=== PATIENT | male | born 1960 | race Caucasian/White ===

== ENCOUNTER 2017-12-25 21:48 | Emergency (ER) | payer BC ==
[~2017-12-25] VITALS: Ht 182.9 cm; Wt 88.5 kg
[2017-12-25] MEDS ORDERED: FOLIC ACID1 MG PO (22:07)
[2017-12-25] MEDS ORDERED: HYDROCHLOROTH12.5 M1 PO (22:07)
[2017-12-25] MEDS ORDERED: ASPIRIN81 MG PO (22:07)
[2017-12-25] MEDS ORDERED: ATORVASTATIN CA20 MG PO (22:08)
[2017-12-25] MEDS ORDERED: GLUCOSAMINE &1 EAC1 PO (22:08)
[2017-12-26] MEDS ORDERED: PYRIDIUM200 MG PO (00:31)
[2017-12-26] MEDS ORDERED: CEPHALEXIN500 MG PO (00:31)
== END 2017-12-26 03:26 | disposition home or self-care (01) ==
LOC: ED 21:48
DX: N39.0 Urinary tract infection, site not specified (principal); I10 Essential (primary) hypertension; K21.9 Gastro-esophageal reflux disease without esophagitis; Z87.891 Personal history of nicotine dependence; Z79.82 Long term (current) use of aspirin; Z79.899 Other long term (current) drug therapy
CPT/HCPCS: 80053; 81001; 83605; 85025; 87077; 87088; 87186; 96361; 96374; 99283; J0696; J7030

== ENCOUNTER 2021-03-15 06:20 | Day surgery (SDC) | payer BC ==
[~2021-03-15] VITALS: Ht 180.3 cm; Wt 103.0 kg
[~2021-03-15 06:20] MED LIST: ASPIRIN81 MG PO; ATORVASTATIN CA20 MG PO; CEPHALEXIN500 MG PO; FOLIC ACID1 MG PO; GLUCOSAMINE &1 EAC1 PO; HYDROCHLOROTH12.5 M1 PO; PYRIDIUM200 MG PO
[2021-03-15] MEDS ORDERED: LISINOPRIL-HCT1 EACH PO (06:40)
[2021-03-15] MEDS ORDERED: PANTOPRAZOLE SO40 MG PO (06:41)
[2021-03-15] MEDS ORDERED: ZYRTEC10 MG PO (06:41)
[2021-03-15] MEDS ORDERED: FISH OIL CONCE1 EAC1 PO (06:42)
--- NOTE | 2021-03-15 08:08 | NUR ---
03/15/21 0808 Valerie Hatch 0801-PATIENT ARRIVED TO PACU ON 2L NC RR EVEN AWAKE LAYING LEFT LATERAL. IVF INFUSING 2ND LITER HUNG. PATIENT REPOSITIONS SELF TO BACK HOB ELEVATED DENIES PAIN ORN AUSEA. ENCOURAGED TO PASS GAS 0807-PATIENT PLACED ON RA RR EVEN. 0808-PATIENT FALLS ASLEEP RA 96% RR EVEN
--- NOTE | 2021-03-15 09:01 | OR ---
[facility] [address] [place], [place] [address] Signed DATE OF OPERATION: 03/15/2021 SURGEON: Latoya Landa MD PREOPERATIVE DIAGNOSES: 1. Small to moderate-sized hiatal hernia. 2. Gastritis. 3. Distal esophagitis. 4. Pandiverticulosis. 5. Low anterior resection with takedown splenic flexure in 2012. POSTOPERATIVE DIAGNOSES: 1. Hiatal hernia, small to moderate-sized hiatal hernia (41-37 cm). 2. Mild diffuse gastritis. 3. Colorectal anastomosis at 18 cm. 4. Moderate pandiverticulosis. 5. Minimal internal hemorrhoids. PROCEDURES: 1. EGD with CLOtest and biopsies of the antrum and GE junction. 2. Colonoscopy with hot biopsy. ESTIMATED BLOOD LOSS: None. INDICATIONS: Radha is a 60-year-old gentleman, asked to see me for upper and lower endoscopy by his primary care provider. He had an upper and lower endoscopy in 2006 with myself. He had a small to moderate-sized hiatal hernia. He also had diverticulosis. A biopsy from the colon at that time was unremarkable. We repeated the upper and lower endoscopy in 2011. Again, he had a small to moderate-sized hiatal hernia with gastritis and mild distal esophagitis. He was also developing narrowing in the sigmoid colon from the diverticular disease. He was having recurrent bouts of diverticulitis. He ended up with two CAT scans in 2012. He went down to [facility] to have a laparoscopic low anterior resection with takedown of the splenic flexure with Dr. Moises Mortensen in 2012. He has a colorectal anastomosis stapled with the EEA stapler. He said he has done wonderful ever since. He said that Protonix does wonders for his acid reflux. He has no family history of colon cancer or polyps. In the office, I gave Tristan a pamphlet on upper and lower endoscopy. He recalls the test quite well. There is risk including, but not limited to gas bloating, crampy abdominal pain, bleeding, perforation requiring Electronically Signed By: LATOYA LANDA MD 03/15/21 0901 PATIENT NAME: RADHA FOWLER OPERATIVE REPORT DATE OF : 60 REPORT #: [id number] PHYSICIAN: LATOYA LANDA MD PCP: ALEXEI FERRO MD REPORT IS CONFIDENTIAL AND NOT TO BE RELEASED WITHOUT AUTHORIZATION [facility] [address] [place], [place] [address] Signed surgery, and missed diagnosis. He always does well with Versed and fentanyl. He always asked me not to discuss too much with his because it causes her anxiety. He had expressed understanding and wished to proceed. PROCEDURE NOTE: Radha was taken into endoscopy suite and placed in the supine semi-recumbent position. He again asked me not to discuss too much detail with his because it generates anxiety. A bite block was utilized for the case. The posterior oropharynx was anesthetized with lidocaine spray. He was given a total of 8 mg of Versed and 150 mcg of fentanyl to help cover both upper and lower endoscopy. The adult gastroscope was introduced and advanced under direct visualization out into the third portion of the duodenum without difficulty. The duodenum and pyloric channel were unremarkable. Once again he has extremely mild diffuse erythematous changes throughout the stomach. We took a biopsy of the antrum for CLOtest as well as pathologic review. Upon retroflexion of scope, we can once again see a small to moderate-sized hiatal hernia. It measured out roughly from 41 back to 37 cm. He has mild disruption to the Z-line with a little granulation tissue. No Villafuerte's mucosa. We went and took a biopsy along the edge of the Z-line. No distal esophagitis on this occasion. The middle and upper esophagus were unremarkable. After this, the gas was suctioned out and the gastroscope removed. Radha tolerated his upper endoscopy quite well. Radha was then rotated into the left lateral decubitus position. He was maintained on IV sedation with Versed and fentanyl. A digital rectal exam was performed. He has good sphincter tone. Prostate is [id number] indurated and swollen. The adult colonoscope had been introduced and it advanced under direct visualization of camera. We did see his well-healed colorectal anastomosis at 18 cm. The scope passed readily all the way around into the cecum itself. His prep was quite excellent. We could easily see the appendiceal orifice and the ileocecal valve. The scope was then slowly withdrawn. We took pictures throughout for photodocumentation. He does have moderate pandiverticulosis. No polyps. Again, the anastomosis is well healed and without issues. The rectum was unremarkable. Upon retroflexion of scope, he has very minimal internal hemorrhoid tissue. After this, the gas was suctioned out and the colonoscope removed. Radha tolerated the procedure quite well. RECOMMENDATIONS: I will see Radha back in my office in 7 to 14 days to review his results. I suspect he will stay on the 10-year rotation for his colonoscopies. Latoya Landa MD Electronically Signed By: LATOYA LANDA MD 03/15/21 0901 PATIENT NAME: RADHA FOWLER OPERATIVE REPORT DATE OF : 60 REPORT #: [id number] PHYSICIAN: LATOYA LANDA MD PCP: ALEXEI FERRO MD REPORT IS CONFIDENTIAL AND NOT TO BE RELEASED WITHOUT AUTHORIZATION [address] [place], [place] [address] Signed ALB/MODL /[id number] cc: MD Alexei Barba MD Andrew L Bower, MD Copies: MOISES ZARATE MD, MALCOLM MD BOWER, ANDREW L MD ~ Electronically Signed By: LATOYA LANDA MD 03/15/21900 PATIENT NAME: RADHA FOWLER OPERATIVE REPORT DATE OF : 60 REPORT #: [id number] PHYSICIAN: LATOYA LANDA MD PCP: ALEXEI FERRO MD REPORT IS CONFIDENTIAL AND NOT TO BE RELEASED WITHOUT AUTHORIZATION
--- NOTE | 2021-03-16 15:48 | PATH ---
[facility] [address] [place], [place] [address] Signed SPECIMEN(S): A ANTRUM/PYLORUS BIOPSY SPECIMEN(S): B GE JUNCTION BIOPSY SPECIMEN SOURCE: A. ANTRUM/PYLORUS BIOPSY B. GE JUNCTION BIOPSY CLINICAL HISTORY: Esophagogastroduodenoscopy, colonoscopy. Personal history of diverticulosis, hiatal hernia, distal gastritis, low anterior resection and takedown of splenic flexure, acid reflux. Postop Dx: Mild gastritis, diverticulosis. MICROSCOPIC DESCRIPTION: Histologic sections of all submitted blocks are examined by light microscopy. These findings, together with the gross examination, support the pathologic diagnosis. FINAL PATHOLOGIC DIAGNOSIS: A. Stomach, antrum/pylorus, biopsy: - Antral mucosa with mild chronic, inactive gastritis. - Negative for Helicobacter organisms on HE stain. - Negative for dysplasia or malignancy. B. Gastroesophageal junction, biopsy: - Squamocolumnar junctional mucosa with intestinal metaplasia and a background of chronic inflammation. - Negative for dysplasia or malignancy. NAL:[facility]:C2NR GROSS DESCRIPTION: Two specimens are received in two containers, labeled "DE." A. The specimen, labeled "DE, antrum biopsy," is received in formalin and consists of one sofia soft tissue fragment that measures 0.2 cm in greatest dimension. The specimen is entirely submitted in cassette (A1). B. The specimen, labeled "DE, GE junction biopsy," is received in formalin and consists of one sofia soft tissue fragment that measures 0.2 cm in greatest dimension. The specimen is entirely submitted in cassette (B1). JS (under the direct supervision of a pathologist) The Gross Description was prepared using a voice recognition system. The report was reviewed for accuracy; however, sound-alike word errors, addition and/or PATIENT NAME: RADHA FOWLER PATHOLOGY DATE OF : 60 REPORT #: [id number] PHYSICIAN: OJ CASTÑAEDA PCP: KUSHAL FERRO MD REPORT IS CONFIDENTIAL AND NOT TO BE RELEASED WITHOUT AUTHORIZATION [facility] [address] [place] [id number] Signed deletions may occur. If there is any question about this report, please contact Client Services. PERFORMING LABORATORY: The technical component was performed by [employer], [address] [place] [id number] (Brim Molder: Flor Deluna MD; CLIA# [id number]). Professional interpretation was performed by [employer], [facility], [address] [address] (CLIA# [id number]). Diagnostician: Brooklyn Vasques MD Pathologist Electronically Signed 03/16/2021 Copies: ~ PATIENT NAME: RADHA FOWLER PATHOLOGY DATE OF : 60 REPORT #: [id number] PHYSICIAN: OJ PATHOLOGY PCP: KUSHAL FERRO MD REPORT IS CONFIDENTIAL AND NOT TO BE RELEASED WITHOUT AUTHORIZATION
== END 2021-03-15 08:35 | disposition home or self-care (01) ==
LOC: OPS 06:20 → DS 06:20 → OPS 07:30 → DS 09:45 → OPS 09:45
PROVIDERS: ATTEND Colon & Rectal Surgery
PROC: 0DJD8ZZ Inspection of Lower Intestinal Tract, Via Natural or Artificial Opening Endoscopic (ICD-10-PCS; 2021-03-15)
PROC: 0DB48ZX Excision of Esophagogastric Junction, Via Natural or Artificial Opening Endoscopic, Diagnostic (ICD-10-PCS; principal; 2021-03-15 07:30)
PROC: 0DB68ZX Excision of Stomach, Via Natural or Artificial Opening Endoscopic, Diagnostic (ICD-10-PCS; 2021-03-15 07:30)
DX: K44.9 Diaphragmatic hernia without obstruction or gangrene (principal); K57.30 Diverticulosis of large intestine without perforation or abscess without bleeding; K29.50 Unspecified chronic gastritis without bleeding; K64.8 Other hemorrhoids; K21.00 Gastro-esophageal reflux disease with esophagitis, without bleeding; I10 Essential (primary) hypertension; E78.5 Hyperlipidemia, unspecified; N40.0 Benign prostatic hyperplasia without lower urinary tract symptoms; Z98.0 Intestinal bypass and anastomosis status; Z87.891 Personal history of nicotine dependence
CPT/HCPCS: 83009; 99153; G0500; J2250; J3010; J7121